=== PATIENT | male | born 1985 | race Two or more races ===

== ENCOUNTER 2021-02-17 15:48 | Emergency (ER) | payer BC ==
[~2021-02-17] VITALS: Ht 172.7 cm; Wt 90.5 kg
[2021-02-17 16:09] VITALS: BP 120/68
[2021-02-17] MEDS ORDERED: DIPH,PERTUSS(ACELL),TET VAC/PF 0.5 ML SYRINGE. VAX IM ONE (16:30)
--- NOTE | 2021-02-17 16:41 | PHYS DOC ---
Past History Past Medical History: No Pertinent History (TORITO ROBERT APRN) Alcohol Use: None (TORITO ROBERT APRN) General Adult EDM: Chief Complaint: LACERATION/AVULSION HPI: HPI: Patient is a 35-year-old male who presents to the ER with a laceration to his right hand after he "slipped and fell into a coffee pot" at 5:00 this morning. Patient denies any pain. He reports that he went to [facility] earlier to be evaluated and he had a long wait time and decided to leave. While he was in the ER at [facility] he had some lacerations repaired with skin glue but left prior to having all lacerations repaired. Patient states that his last tetanus shot was greater than 10 years ago. (TORITO ROBERT APRN) Review of Systems: Review of Systems: 14 body systems of the review of systems have been reviewed. See HPI for pertinent positive and negative responses, otherwise all other systems are negative, nonpertinent or noncontributory (TORITO ROBERT APRN) Allergies: Allergies: Allergies Coded Allergies Type Severity Reaction Last Updated Verified No Known Drug Allergies 02/17/21 No (TORITO ROBERT APRN) Physical Exam: PE: Constitutional: Well developed, well nourished, no acute distress, non-toxic appearance. [] HENT: Normocephalic, atraumatic Eyes: PERRL,conjunctiva normal, no discharge. [] Neck: Normal range of motion Lungs & Thorax: Patient is nonlabored with no accessory muscle use Skin: Warm, dry, no erythema, no rash. Patient has several small lacerations that have been repaired with skin glue and are well approximated, patient has a 0.5 cm laceration to his right fourth finger over his PIP joint, there appears to be no tendon involvement patient has full range of motion of finger and denies any current pain. Extremities: No tenderness, no cyanosis, no clubbing, ROM intact, no edema. Patient has good range of motion in right hand and fingers and is neurologically intact. [] Neurologic: Alert and oriented X 3, normal motor function, normal sensory function, no focal deficits noted. [] Psychologic: Affect normal, judgement normal, mood normal. [] (TORITO ROBERT APRN) Current Patient Data: Vital Signs: Vital Signs Date Time Temp Pulse Resp B/P (MAP) Pulse Ox O2 Delivery O2 Flow Rate FiO2 02/17/21 16:09 98.5 72 16 120/68 (85) 98 (TORITO ROBERT APRN) EKG: EKG: [] (TORITO ROBERT APRN) Radiology/Procedures: Radiology/Procedures: [] (TORITO ROBERT APRN) Heart Score: C/O Chest Pain: No Risk Factors: Risk Factors: DM, Current or recent (<one month) smoker, HTN, HLP, family history of CAD, obesity. Risk Scores: Score 0 - 3: 2.5% MACE over next 6 weeks - Discharge Home Score 4 - 6: 20.3% MACE over next 6 weeks - Admit for Clinical Observation Score 7 - 10: 72.7% MACE over next 6 weeks - Early Invasive Strategies (TORITO ROBERT APRN) Course & Med Decision Making: Course & Med Decision Making Pertinent Labs and Imaging studies reviewed. (See chart for details) Patient is a 35-year-old male being evaluated in the ER for a laceration to his right fourth finger after he "slipped and fell into a coffee pot". Patient was offered an x-ray to determine if there is any presence of a foreign body but patient refused. Patient was given a tetanus shot since his last tetanus shot was 10 years ago. Wound was cleansed and repaired with Dermabond, patient tolerated procedure. Finger was placed in an aluminum finger splint. Patient provided with information on how to care for this laceration and signs and symptoms of possible infection. (TORITO ROBERT APRN) Course & Med Decision Making I oversaw on the above date of service of this patient. This patient was evaluated, examined, treated, and dispositioned from the emergency department by the mid-level practitioner. Although I was working at the time and available for consultation, no assistance was requested and I did not see or immediately direct the care of this patient. I reviewed note and agree to findings, plan of care, and disposition as stated. Electronically signed, Madyson Melo DO (MADYSON MELO DO) Kalpana Disclaimer: Kalpana Disclaimer: This electronic medical record was generated, in whole or in part, using a voice recognition dictation system. (TORITO ROBERT APRN) Laceration Repair Lac Repair Indication: Laceration to right fourth after cutting on a coffee pot Procedure: The patient was placed in the appropriate position. The laceration was cleansed with warm water and soap by ER staff. The laceration was repaired with Dermabond. Wound edges well approximated patient tolerated procedure Total repaired wound length: 0.5 cm Complications: None (TORITO ROBERT APRN) Departure Departure: Impression: Primary Impression: Laceration of finger of right hand Qualified Codes: S61.214A - Laceration without foreign body of right ring finger without damage to nail, initial encounter Disposition: HOME / SELF CARE / HOMELESS Condition: GOOD Referrals: PCP,NO (PCP) Patient Instructions: Laceration Care, Adult, [id number] Additional Instructions: Thank you for choosing [facility] and allowing me to participate in your care. You were seen for a laceration to your right finger. As we discussed, wound was repaired with skin glue and your tetanus was updated. Please follow up with your primary care provider tomorrow regarding your ER visit. Please keep laceration clean and dry do not submerge your hand in any water. You can take Tylenol or ibuprofen for pain. Continue to wear aluminum finger splint to prevent the laceration from opening back up. Monitor for signs of infection including redness, warmth, swelling, and drainage. If you experience any of these signs of infection and/or worsening of your pain please return. TORITO ROBERT APRN Feb 17, 2021 16:41 MADYSON MELO DO Feb 19, 2021 07:13
== END 2021-02-17 17:12 | disposition home or self-care (01) ==
LOC: ER 15:48
DX: S61.411A Laceration without foreign body of right hand, initial encounter (principal); W18.09XA Striking against other object with subsequent fall, initial encounter; Y93.89 Activity, other specified; Y92.89 Other specified places as the place of occurrence of the external cause; Y99.8 Other external cause status
CPT/HCPCS: 12001; 90471; 90715; 99283-25